=== PATIENT | female | born 1975 | race Caucasian/White ===

== ENCOUNTER 2018-06-05 05:27 | Day surgery (SDC) | payer BC ==
[~2018-06-05] VITALS: Ht 165.1 cm; Wt 56.7 kg
[~2018-06-05 05:27] MED LIST: SPIRONOLACTONE25 M1 PO; SYNTHROID50 MCG PO
[2018-06-05 13:16] VITALS: BP 124/77
== END 2018-06-05 16:45 | disposition home or self-care (01) ==
LOC: OR 05:27 → TBA 05:27 → OR 10:15
DX: M20.22 Hallux rigidus, left foot (principal); M20.21 Hallux rigidus, right foot; M25.774 Osteophyte, right foot; M25.775 Osteophyte, left foot; M25.572 Pain in left ankle and joints of left foot; M25.571 Pain in right ankle and joints of right foot; M19.072 Primary osteoarthritis, left ankle and foot; M19.071 Primary osteoarthritis, right ankle and foot; Z98.890 Other specified postprocedural states; Z79.899 Other long term (current) drug therapy
CPT/HCPCS: 50010; 50101; 50386; 50951; 53341; 56524; 56526; 57091; 57178; 57192; 62110; 62850; 70005